=== PATIENT | female | born 1975 | race African-American/Black ===

== ENCOUNTER → 2017-02-22 | Day surgery (SDC) | payer BC ==
[~2017-02-22] MED LIST: LAMICTAL PO; LEVOTHYROXINE112 MCG PO; MULTI VITAMIN1 EACH PO; NAPROSYN500 MG PO; OMEPRAZOLE40 M1 PO; RISPERDAL1 M1; ROBINUL PO; VITAMIN D250000 UNIT PO
--- NOTE | ~2017-02-22 | OR ---
Unit #: [id number] #: [id number] Patient: BETY KENDALL [id number] [address] [place], [place] [address] [id number] O MR#: [id number] NAME: BETY KENDALL ROOM: Date of Procedure: 02/22/2017 Admission Date: 02/22/2017 Surgeon: Aram Jacobo M.D. : 1975 Attending Physician: Aram Jacobo M.D. Primary Care Physician: Amrita Lyles M.D. OPERATIVE REPORT PREOPERATIVE DIAGNOSES Dyspepsia, retrosternal ascending heartburn, and epigastric pain. PROCEDURES PERFORMED Upper gastrointestinal endoscopy and biopsy. POSTOPERATIVE DIAGNOSES The patient had moderate prepyloric antral erosive gastritis as well as moderate duodenitis involving the duodenal bulb. Rest of the examination up to third part of duodenum was normal. A biopsy was obtained from the antrum for CLOtest. RECOMMENDATIONS The patient is advised to stay on a daily omeprazole 40 mg p.o. daily. She will be followed up in the office in 10 to 12 weeks' time. SEDATION USED MAC. DESCRIPTION OF PROCEDURE Following detailed explanation of the potential risks and complications of upper endoscopy, namely perforation, bleeding, and complication related to sedation, the patient was brought to GI lab and laid in the left lateral decubitus position. Lubricated tip of the Olympus video upper endoscope was passed through the bite block into the proximal esophagus and under direct vision. The entire esophageal mucosa was examined and appeared normal. Z-line was nicely demarcated, there being no esophagitis or hiatus hernia. The scope was then advanced into the gastric cavity and the latter was insufflated. Mucosa of the fundus, body, and antrum was examined. The patient was noted to have moderate prepyloric antral erythema erosions indicating antral gastritis. Pylorus was intubated with visualization of the duodenal bulb. The latter was noted to have focal patchy erosive duodenitis. Second and third part of duodenum were normal. Upon withdrawal and retroflexion, incisura, cardia, and greater curve was examined and a biopsy was obtained from the antrum for CLOtest. The scope was then withdrawn in the distal esophagus. The entire esophageal mucosa was examined all the way up to pharynx. No additional findings were noted. The patient tolerated the procedure without any postprocedure complications. Dictated by... Unit #: [id number] #: [id number] Patient: BETY KENDALL M.D. AK/naomi TD: 02/23/2017 04:13 JOB #: [id number] OPERATIVE REPORT Page 1 of 1 X Aram Jacobo MD PROCEDURE OPERATIVE NOTE
== END | disposition home or self-care (01) ==
LOC: COPS 14:06
PROVIDERS: Internal Medicine Gastroenterology
PROC: 0DB78ZX Excision of Stomach, Pylorus, Via Natural or Artificial Opening Endoscopic, Diagnostic (ICD-10-PCS; principal; 2017-02-22 16:26)
DX: K29.60 Other gastritis without bleeding (principal); K29.80 Duodenitis without bleeding; Z79.899 Other long term (current) drug therapy; K21.9 Gastro-esophageal reflux disease without esophagitis; E03.9 Hypothyroidism, unspecified; F31.9 Bipolar disorder, unspecified; F17.200 Nicotine dependence, unspecified, uncomplicated; Z87.440 Personal history of urinary (tract) infections; Z98.51 Tubal ligation status
CPT/HCPCS: 84703